=== PATIENT | female | born 1990 | race Two or more races ===

== ENCOUNTER 2020-06-05 07:32 | Emergency (ER) | payer OTHER ==
[~2020-06-05] VITALS: Ht 162.6 cm; Wt 67.1 kg
--- NOTE | 2020-06-05 07:34 | NUR ---
CAME IN FOR DIFFUSE ABDOMINAL PAIN W/ N/V SINCE LAST NIGHT, TO ER BED 4, HOOKED TO MONITOR, CHANGED TO HOSP GOWN, WARM BLANKET PROVIDED, PATIENT AAO x 4, BREATHING EVEN AND UNLABORED, NAD NOTED. AWAITING MD ARRIAGA
--- NOTE | 2020-06-05 07:40 | NUR ---
DR HALEY AT BEDSIDE
[2020-06-05] MEDS ORDERED: ONDANSETRON HCL/PF 4 MG/2 ML VIAL ONE (07:47)
[2020-06-05] MEDS ORDERED: MORPHINE SULFATE INJ 4 MG/ML DISP.SYRIN ONE ×2 (07:47→10:37)
[2020-06-05] MEDS ORDERED: ONDANSETRON HCL/PF 4 MG/2 ML VIAL IVP ONE (08:00)
[2020-06-05] MEDS ORDERED: IV NS 0.9% 1,000 ML BAG IV ONE (08:00)
[2020-06-05] MEDS ORDERED: MORPHINE SULFATE INJ 2 MG/ML DISP.SYRIN IV ONE ×2 (08:00→10:30)
[2020-06-05 08:46] LABS: BASOPHILS % (AUTO) 0.5 % (0.0-2.0); EOSINOPHILS % (AUTO) 2.6 % (0.0-6.0); HEMATOCRIT 41 % (33-45); HEMOGLOBIN 13.8 g/dL (11.5-14.8); LYMPHOCYTES # (AUTO) 1.7 /CMM (0.8-4.8); LYMPHOCYTES % (AUTO) 25.4 % (20.0-44.0); MEAN CORPUSCULAR HGB CONC 34 g/dl (31.0-36.0); MEAN CORPUSCULAR VOLUME 88 fL (82-100); MONOCYTES # (AUTO) 0.3 /CMM (0.1-1.30); MONOCYTES % (AUTO) 4.8 % (2.0-12.0); NEUTROPHILS # (AUTO) 4.4 /CMM (1.8-8.9); NEUTROPHILS % (AUTO) 66.7 % (43.0-81.0); PLATELET COUNT (AUTO) 198 /CMM (150-450); RED BLOOD CELL COUNT(AUTO) 4.65 MIL/uL (4.0-5.2); WHITE BLOOD COUNT (AUTO) 6.5 K/uL (4.3-11.0)
[2020-06-05 09:15] LABS: ALBUMIN 4.2 g/dL (3.4-5.0); BILIRUBIN,DIRECT 0.1 mg/dL (0.0-0.2); BILIRUBIN,TOTAL 0.3 mg/dL (0.2-1.0); CALCIUM, SERUM 9.1 mg/dL (8.5-10.1); CREATININE 0.6 mg/dL (0.6-1.3); POTASSIUM 3.6 mmol/L (3.5-5.1); TOTAL PROTEIN, SERUM 7.7 g/dL (6.4-8.2)
[2020-06-05] MEDS ORDERED: IV NS 0.9% 250 ML IV ONE (09:25)
[2020-06-05] MEDS ORDERED: IOHEXOL-300 100 ML VIAL IV ONE (09:26)
--- NOTE | 2020-06-05 10:54 | NUR ---
PATIENT WANTS HER "SPONSOR" LOLA CALLED AT [phone]
--- NOTE | 2020-06-05 12:01 | NUR ---
GENER, RN/CHG IS CALLING [facility] RE: PT READY FOR DISCHARGE AND PICKUP.
--- NOTE | 2020-06-05 12:04 | NUR ---
CALLED [facility] AT [phone],SPOKE WITH SANDRA, SAID THAT SHE WILL LOOK INTO IT BECAUSE THEY DIDN'T EVEN KNOW THAT SHE WENT TO THE HOSPITAL,SHE GOES TO THE [facility] PER SANDRA.
--- NOTE | 2020-06-05 12:20 | NUR ---
CALL BACK FROM [facility], THEY WILL COME TO PICK HER UP. LOLA CALLED AND INFORMED HER OF POC
--- NOTE | 2020-06-05 12:22 | NUR ---
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
--- NOTE | 2020-06-05 12:24 | NUR ---
PT AMBULATED TO THE LOBBY WITH A STEADY GAIT. PT IS WAITING FOR P/U BY [facility]. [facility] IS AWARE THAT PT WAS DISCHARGED AND WILL BE PICKED UP FROM THE LOBBY
[2020-06-05 12:26] VITALS: BP 131/86
== END 2020-06-05 12:29 | disposition home or self-care (01) ==
LOC: ER 07:32
DX: R10.30 Lower abdominal pain, unspecified (principal); R11.2 Nausea with vomiting, unspecified; R19.7 Diarrhea, unspecified; J45.909 Unspecified asthma, uncomplicated; Z90.89 Acquired absence of other organs
CPT/HCPCS: 36415; 74177; 80048; 80076; 83690; 84702; 85025; 96361; 96374; 96375; 96376; 99285; J2270 ×2; J2405; J7030; J7050; Q9967

== ENCOUNTER 2020-06-06 10:35 | Emergency (ER) | payer OTHER ==
[~2020-06-06] VITALS: Ht 170.2 cm; Wt 64.0 kg
--- NOTE | 2020-06-06 10:42 | NUR ---
BIB RA C/O AUDITORY HALLUCINATIONS WHILE AT [facility], DENIES SI/HI. STATES "I HEAR A KID CRYING". TO ER BED 12, HOOKED TO MONITOR, CHANGED TO HOSP GOWN, WARM BLANKET PROVIDED, DR SALEEM AT BEDSIDE FOR EVAL.
[2020-06-06] MEDS ORDERED: OLANZAPINE 10 MG VIAL IM ONE ×2 (10:44→11:00)
[2020-06-06 11:19] LABS: BASOPHILS # (AUTO) 0.1 /CMM (0.0-0.2); BASOPHILS % (AUTO) 0.7 % (0.0-2.0); EOSINOPHILS % (AUTO) 2.1 % (0.0-6.0); HEMATOCRIT 45 % (33-45); HEMOGLOBIN 14.8 g/dL (11.5-14.8); LYMPHOCYTES # (AUTO) 1.6 /CMM (0.8-4.8); MEAN CORPUSCULAR HGB CONC 33 g/dl (31.0-36.0); MEAN CORPUSCULAR VOLUME 91 fL (82-100); MONOCYTES # (AUTO) 0.3 /CMM (0.1-1.30); MONOCYTES % (AUTO) 4.7 % (2.0-12.0); NEUTROPHILS # (AUTO) 5.1 /CMM (1.8-8.9); NEUTROPHILS % (AUTO) 70.5 % (43.0-81.0); WHITE BLOOD COUNT (AUTO) 7.2 K/uL (4.3-11.0)
[2020-06-06 11:27] LABS: APPEARANCE,URINE Clear (CLEAR); BILIRUBIN,URINE Negative (NEGATIVE); BLOOD, URINE Trace-intact Ery/uL (NEGATIVE); COLOR,URINE Yellow (YELLOW); KETONES,URINE Negative (NEGATIVE); LEUKOCYTE ESTERASE ,URINE Negative (NEGATIVE); NITRITE, URINE Negative (NEGATIVE); PROTEIN,URINE Negative (NEGATIVE); UGLUCOSE Negative (NEGATIVE); UROBILINOGEN,URINE 0.2 EU/dL (0.2)
[2020-06-06 11:30] LABS: BACTERIA,URINE Few /HPF (None Seen); SQUAMOUS EPITHELIAL CELL,UR Few /HPF (None Seen); WBC,URINE 0-2 /HPF (0-3)
--- NOTE | 2020-06-06 12:10 | NUR ---
followed up with lab regarding result. per phleb, pt is hard stick and will come back again for redraw.
[2020-06-06 12:44] LABS: GLUCOSE 93 mg/dL (74-106); UREA NITROGEN, BLOOD 9 mg/dL (7-18)
[2020-06-06 12:49] LABS: PLATELET COUNT (AUTO) 204 /CMM (150-450)
[2020-06-06 12:51] LABS: ALANINE AMINOTRANSFERASE 16 U/L (12-78); ALBUMIN 4.2 g/dL (3.4-5.0); ALCOHOL, BLOOD < 3 mg/dL (0-0); ALKALINE PHOSPHATASE 79 U/L (46-116); ASPARTATE AMINOTRANSFERASE 12 U/L (15-37); BILIRUBIN,DIRECT 0.1 mg/dL (0.0-0.2); BILIRUBIN,TOTAL 0.2 mg/dL (0.2-1.0); TOTAL PROTEIN, SERUM 7.9 g/dL (6.4-8.2)
[2020-06-06 12:54] LABS: CARBON DIOXIDE 25 mmol/L (21-32); CHLORIDE 105 mmol/L (98-107); POTASSIUM 3.6 mmol/L (3.5-5.1); SODIUM SERUM 140 mmol/L (136-145)
[2020-06-06 12:55] LABS: CALCIUM, SERUM 9.5 mg/dL (8.5-10.1); CREATININE 0.6 mg/dL (0.6-1.3)
[2020-06-06 12:56] LABS: ACETAMINOPHEN 0 ug/ml (10-30)
--- NOTE | 2020-06-06 14:01 | NUR ---
CALLED CHRIS SMILEY - FOR PET EVALUATION
--- NOTE | 2020-06-06 14:03 | NUR ---
CALLED CHRIS SMILEY - FOR PET EVALUATION - LEFT A MESSAGE AT [phone]
--- NOTE | 2020-06-06 14:22 | NUR ---
CHRIS BUCKNER NOT ABLE TO COME FOR A PATIENT EVAL. ASKED TO CONTACT MINOO JIMENES
--- NOTE | 2020-06-06 14:23 | NUR ---
CONTACTED MINOO JIMENES, NO ANSWER, LEFT VM
--- NOTE | 2020-06-06 15:39 | NUR ---
LOLA DURAN (SPONSOR) [phone]
--- NOTE | 2020-06-06 16:01 | NUR ---
PT IN BED SLEEPING. AWAITING FOR PSYCH EVAL. PT DOES NOT WANT TO HAVE HER VITAL SIGN TAKEN
--- NOTE | 2020-06-06 19:40 | NUR ---
KARIE, RN WAS AT BEDSIDE FOR PSYCH EVAL
[2020-06-06] MEDS ORDERED: ACETAMINOPHEN 325 MG TABLET ONE (19:59)
[2020-06-06] MEDS ORDERED: ACETAMINOPHEN 325 MG TABLET PO ONE (20:00)
--- NOTE | 2020-06-06 20:17 | NUR ---
PT IS MEDICALLY AND PSYCHIATRICALLY CLEARED TO GO BACK TO HER REHAB. AWAITING FOR COLLIN DAVILA'S SPONSOR FOR PICKUP
--- NOTE | 2020-06-06 20:46 | NUR ---
PT IS PICKED UP BY THE PT'S SPONSOR TO GO BACK TO HER REHAB. PT WAS WALKED TO LOLA'S VEHICLE.
[2020-06-06 20:47] VITALS: BP 113/58
== END 2020-06-06 20:47 | disposition home or self-care (01) ==
LOC: ER 10:39
DX: R44.0 Auditory hallucinations (principal); F32.9 Major depressive disorder, single episode, unspecified; J45.909 Unspecified asthma, uncomplicated; Z90.89 Acquired absence of other organs
CPT/HCPCS: 36415; 80048; 80076; 80305; 80307; 80329; 81001; 84703; 85025; 96372; 99284; G0480; J3490; 81000-TC